=== PATIENT | male | born 1950 | race Caucasian/White ===

== ENCOUNTER 2019-02-02 06:31 | Inpatient (IN) | payer OTHER ==
[2019-02-01 15:25] VITALS: BMI 25.7
[2019-02-02] MEDS ORDERED: BUPIVACAINE HCL/PF 0.25% (2.5MG/ML) 10 ML VIAL ONE ×2 (07:08→07:11)
[2019-02-02] MEDS ORDERED: MIDAZOLAM HCL 2 MG/2 ML SINGLE DOSE VIAL ONE (07:22)
[2019-02-02] MEDS ORDERED: LIDOCAINE HCL/PF 2% SDV 5ML VIAL ONE ×2 (07:25→10:41)
[2019-02-02] MEDS ORDERED: PROPOFOL 20 ML ONE ×2 (07:26→08:56)
[2019-02-02] MEDS ORDERED: ROCURONIUM BROMIDE 50 MG/5 ML VIAL ONE ×2 (07:26→08:55)
[2019-02-02] MEDS ORDERED: DEXAMETHASONE SOD PHOSPHATE 4 MG/1 ML VIAL ONE (07:29)
[2019-02-02] MEDS ORDERED: KETOROLAC TROMETHAMINE 30 MG/1 ML VIAL ONE (07:29)
--- NOTE | 2019-02-02 07:53 | HP ---
History & Physical Update - History History: No Change - Physical Physical: No Change - Assessment Assessment: No Change - Plan Plan: No Change
[2019-02-02] MEDS ORDERED: GLYCOPYRROLATE 0.2 MG/1 ML VIAL ONE (08:34)
[2019-02-02] MEDS ORDERED: NEOSTIGMINE METHYLSULFATE 0.5 MG/ML - 10 ML MDV ONE (08:34)
[2019-02-02] MEDS ORDERED: ceFAZolin SODIUM 1 GM VIAL ONE (08:35)
[2019-02-02] MEDS ORDERED: SODIUM CHLORIDE 0.9% P/F 10 ML VIAL IJ ONE ×2 (08:35→10:26)
[2019-02-02] MEDS ORDERED: ceFAZolin SODIUM 1 GM VIAL IVPB ONE (08:35)
[2019-02-02] MEDS ORDERED: hydrALAZINE HCL 20 MG/ML VIAL ONE (08:59)
[2019-02-02] MEDS ORDERED: BUPIVACAINE HCL/PF 0.25% (2.5MG/ML) 10 ML VIAL IJ ONE ×2 (09:09)
[2019-02-02] MEDS ORDERED: ePHEDrine SULFATE 50 MG/1 ML AMPULE ONE ×5 (10:25)
--- NOTE | 2019-02-02 11:25 | OP ---
Operative Note - Note: Operative Date: 02/02/19 Pre-Operative Diagnosis: metastatic left renal cell carcinoma Operation: laparoscopic left nephrectomy Surgeon: Quinton Marie Biscuitware Brusher: Brittany Mendenhall Anesthesiologist/EXECUTIVE PASTRY CHEF: Tristen Watkins Anesthesia: General Specimens Removed: left kidney Estimated Blood Loss (mls): 150 Drains, Volume Out (mls): 1,340 (stephens) Fluid Volume Replaced (mls): 2,500 Operative Report Dictated: Yes
[2019-02-02] MEDS ORDERED: ONDANSETRON 4 MG/2 ML VIAL IVPB PRN (11:26)
[2019-02-02] MEDS ORDERED: diphenhydrAMINE HCL 50 MG CAPSULE PO PRN (11:26)
[2019-02-02] MEDS ORDERED: ONDANSETRON 4 MG/2 ML VIAL IVPUSH PRN (11:36)
[2019-02-02] MEDS ORDERED: LACTATED RINGERS SOLUTION 1,000 ML IV SCH (11:45)
[2019-02-02] MEDS: ACETAMINOPHEN 1000 MG/100 ML VIAL (NON FORMULARY) IVPB ONE ×2 (11:55→12:00)
--- NOTE | 2019-02-02 11:58 | SURG ---
Surgery Keyboard Action Assembler Note Keyboard Action Assembler: Brittany Mendenhall PA-C Date of Service: 02/02/19 Diagnosis: metastatic left renal cell carcinoma Procedure: laparoscopic left nephrectomy I was present for the entirety of the operative procedure. For further detail, please refer to operative report.
[2019-02-02] MEDS ORDERED: HYDROmorphone HCl 2 MG/ML VIAL ONE (14:37)
[2019-02-02] MEDS ORDERED: HYDROmorphone HCl 2 MG/ML VIAL IVPUSH ONE (14:40)
[2019-02-02] MEDS: SODIUM CHLORIDE 1,000 ML IV SCH (15:15)
[2019-02-02] MEDS: ACETAMINOPHEN 500 MG TABLET (FP) PO SCH (18:26)
[2019-02-02] MEDS ORDERED: MORPHINE SULFATE 2 MG/ML VIAL IVPUSH PRN (19:12)
[2019-02-02] MEDS ORDERED: ATORVASTATIN CA 20 MG TABLET (FP) PO SCH (22:00)
[2019-02-02] MEDS: DOCUSATE SODIUM 100 MG CAPSULE (FP) PO SCH (22:19)
[2019-02-03] MEDS: ACETAMINOPHEN 500 MG TABLET (FP) PO SCH ×4 (05:38→17:04)
[2019-02-03] MEDS ORDERED: oxyCODONE HCL 5 MG TABLET PO PRN (08:12)
[2019-02-03] MEDS: oxyCODONE HCL 5 MG TABLET PO PRN ×2 (08:31→13:17)
[2019-02-03 08:34] LABS: HEMATOCRIT 36.8 % (35.4-49); HEMOGLOBIN 12.2 GM/dL (11.7-16.9); MCH 31.6 pg (25.7-33.7); MEAN CELL VOLUME 95.7 fl (80-96); MEAN PLT VOLUME 9.5 fl (7.5-11.1); RBC 3.85 M/mm3 (4.00-5.60); RDW 15.3 % (11.9-15.9); WHITE BLOOD COUNT 10.4 K/mm3 (4.0-10.0)
[2019-02-03 08:39] LABS: BLOOD UREA NITROGEN 12.4 mg/dL (7-18); CALCIUM 8.3 mg/dL (8.5-10.1); CREATININE 1.4 mg/dL (0.55-1.3); POTASSIUM 4.4 mmol/L (3.5-5.1)
--- NOTE | 2019-02-03 08:47 | PN ---
Progress Note (short form) - Note Progress Note: Anesthesia postop note 69 y/o M s/p GA for Laparoscopic nephrectomy POD#1, vss, aaox3, pain well controlled. No anesthesia complications.
[2019-02-03 08:53] LABS: PLATELET COUNT 216 K/MM3 (134-434)
--- NOTE | 2019-02-03 09:02 | PN ---
Progress Note (short form) - Note Progress Note: 69yo M s/p Lap Left nephrectomy POD 1, pt seen and examined at bedside. Pt complaining of pain around the incision. Pt denies fever, chills, n/v, diarrhea. Pt states that has been producing a lot of urine out of stephens. Last Vital Signs Temp Pulse Resp BP Pulse Ox 98.0 F 65 14 125/74 97 02/03/19 08:16 02/03/19 08:16 02/03/19 08:16 02/03/19 08:16 02/02/19 21:00 CBC, BMP 02/03/19 07:45 02/03/19 07:45 PE: Gen: A&O X3 Resp: breathing comfortably Abd: soft, nondistended, moderate tenderness around incision, incisions clean with no erythema or discharge. Ext: no edema Problem List - Problems (1) Status post nephrectomy Assessment/Plan: Plan -will DC stephens and [place] later today. -adv diet -pain control -will consider discharge later today if doing well. Case discussed with Dr. Pinto who agrees with plan Code(s): Z90.5 - ACQUIRED ABSENCE OF KIDNEY
[2019-02-03] MEDS ORDERED: PT OWN MED DRAWER 7, Y5N ONE (09:45)
[2019-02-03] MEDS ORDERED: LISINOPRIL 20 MG TABLET (FP) PO SCH (10:00)
[2019-02-03] MEDS ORDERED: HYDROCHLOROTHIAZIDE 12.5 MG CAPSULE (FP) PO SCH (10:00)
[2019-02-03] MEDS ORDERED: PATIENT'S OWN MEDICATION (NON-FORMULARY) (Lisinopril/Hydrochlorothiazide [Lisinopril-Hctz PO SCH (10:00)
[2019-02-03] MEDS: DOCUSATE SODIUM 100 MG CAPSULE (FP) PO SCH (10:07)
[2019-02-03] MEDS: SODIUM CHLORIDE 1,000 ML IV SCH (11:54)
[2019-02-03 15:00] VITALS: BP 128/76; PULSE 68; TEMP 98.2
--- NOTE | 2019-02-07 22:14 | OPR ---
Date of Surgery: 02/07/19 Pre-Procedure Information Pre-op Diagnosis:Renal mass [N28.89] Procedure Information Procedure(s): LAPAROSCOPICLEFT RADICALNEPHRECTOMY Anesthesia:General Surgeon(s) and Role: * Quinton Marie MD - Primary Job Training Supervisor: Date of Surgery: 02/07/19 Pre-Procedure Information Pre-op Diagnosis:Renal mass [N28.89] Procedure Information Procedure(s): LAPAROSCOPICLEFT RADICALNEPHRECTOMY Anesthesia:General Surgeon(s) and Role: * Quinton Marie MD - Primary Job Training Supervisor: ENEIDA Singletary. Procedure Description Indications: Left renal cell cancer. Findings: Single artery and single vein - taken individually with 2 vascular loads Ethicon 45 powered stapler. Procedure Details: Pt was brought to operating room and placed in supine position. SCDs were applied, perioperativeantibiotics were administered, and general anesthesia was induced.16Fr Gibbs was inserted. He was then positioned in modified flank position with left side up,axillary roll in place,back roll, bottom leg bent and three pillows hislegs. Left arm was placed on moreno and he was secured in place tothe table. He was then prepped and draped in the usual sterile manner. A Veress needle was used to insufflate the abdomen to 15mm Hg justabove the umbilicus and in the lateral rectus border. A 12mm trocar was inserted and there was no evidence of injury to any visceral structures. A second 12mm trocar was insertedunder the costal margin in the mid clavicular line.A third 12mm trocar was inserted inferior to level of umbilicus again slightly lateral tothe mid clavicularline.Pneumo was maintained on 12mmHg throughout the rest of the case. The white line of toldt was taken down with ligasure and colon retracted medially. Gonadalvein and ureter were encountered.The lower pole of the kidney was freed off the psoas muscleand lifted laterally, exposing the hilum. The hilum was dissected free consisting of single renal vein and one artery and these were taken separately with [id number] stapler x2with an extra hemolock along the distal edge of vein.Right adrenal gland was spared with ligasure. Ureter and gonadal vein packet was controlled with blue stapler load. Posterior, medial,and lateral attachments were then freed with ligasure allowing kidney to be mobilized.The mass, while posterior, did not invade psoas.Renal hilum, pancreas, colon, and adrenal were carefully inspected and there was no evidence of injury or bleeding.15mm endocatch bag was placed into theinferiortrocar and right kidney placed within. The trocars were removed. Theendocatchbag was removed through the lower quadrant incisionwhich was extended laterallyand this was then closed withan inner layer of 0 vicryl sutures in a [id number] fashion, and an outer layer of 0 vicryl running. Hemostasis inspection was done again at the end and 10 Fr [place] drain was left in the nephrectomy bed. Subcutaneous tissues closed with 3-0 vicryl.Skin was closed with 4-0 monocrylinterruptedand dermabond. Estimated Blood Loss: 150 ml. Drains: 10 Fr [place] drain.
--- NOTE | 2019-02-08 17:08 | PATH ---
Surgical Pathology Report Patient Name: DANICA DELANEY [facility]. Rec. #: [id number] /Age/Gender: 1950 (Age: 69) / M Account: [id number] Location: [address] [place] [address] Taken: 02/02/2019 Received: 02/02/2019 Reported: 02/08/2019 Physicians: Quinton Marie M.D. Specimen(s) Received LEFT KIDNEY Clinical History Malignant neoplasm of left kidney Final Diagnosis KIDNEY, LEFT, RADICAL NEPHRECTOMY: CLEAR CELL RENAL CELL CARCINOMA, GRADE 3 (WHO/ISUP GRADE). TUMOR MEASURES 5.0 X 4.6 X 3.0 CM (GROSS MEASUREMENT). TUMOR LOCATED AT UPPER (UPPER-LATERAL) POLE. TUMOR EXTENDS INTO PERINEPHRIC TISSUE AND RENAL SINUS. TUMOR NECROSIS PRESENT, ~25-30%. NO LYMPHOVASCULAR INVASION IDENTIFIED. SURGICAL MARGINS ARE NEGATIVE. ONE LYMPH NODE, NEGATIVE FOR CARCINOMA ON H&E AND CONFIRMED BY AE1/3 IMMUNOHISTOCHEMICAL STAIN. NON-NEOPLASTIC RENAL PARENCHYMA SHOW FOCAL GLOBAL GLOMERULOSCLEROSIS, PATCHY TUBULAR ATROPHY, MILD INTERSTITIAL FIBROSIS, FOCAL HYALINE ARTERIOLOSCLEROSIS, AND MILD PATCHY CHRONIC INFLAMMATION CONSISTENT WITH HYPERTENSIVE NEPHROSCLEROSIS. AJCC (TNM) STAGE (8th ED): pT3a pN0. SEE SUMMARY BELOW. Comments Surgical Pathology Cancer Case Summary AJCC TNM Stage, 8th Edition KIDNEY: Nephrectomy Procedure _X_ Radical nephrectomy Specimen Laterality _X_ Left Tumor Site _X_ Upper pole (Upper-lateral) Tumor Size Greatest dimension (centimeters): 5 cm Additional dimensions (centimeters): 4.6 x 3.0 cm Tumor Focality _X_ Unifocal Histologic Type _X_ Clear cell renal cell carcinoma Sarcomatoid Features _X_ Not identified Rhabdoid Features _X_ Not identified Histologic Grade (WHO / ISUP Grade) _X__ G3: Nucleoli conspicuous and eosinophilic at 100x magnification Tumor Necrosis _X__ Present Specify percentage of necrosis: ~25-30% Tumor Extension _X_ Tumor extension into perinephric tissue (beyond renal capsule) _X_ Tumor extension into renal sinus Margins _X_ Uninvolved by invasive carcinoma Lymphovascular Invasion (excluding renal vein and its segmental branches and inferior vena cava) _X_ Not identified Regional Lymph Nodes Lymph Node Examination Number of Lymph Nodes Involved: 0 Number of Lymph Nodes Examined: 1 Pathologic Stage Classification (pTNM, AJCC 8th Edition) Primary Tumor (pT) _X_ pT3a: Tumor extends into renal vein or its segmental branches, or invades the pelvicalyceal system, or invades perirenal and/or renal sinus fat but not beyond Gerota's fascia Regional Lymph Nodes (pN) _X_ pN0: No regional lymph node metastasis Pathologic Findings in Nonneoplastic Kidney _X_ Glomerular disease (specify type): focal global glomerulosclerosis _X_ Tubulointerstitial disease (specify type): patchy tubular atrophy and mild interstitial fibrosis _X_ Vascular disease (specify type): focal hyaline arteriolosclerosis _X_ Mild patchy chronic inflammation Electronically Signed Mar Jaquez M.D. Addendum Reported: 02/09/2019 Addendum Diagnosis PAS special stain utilized to evaluate this case. Findings discussed with Dr. Marie. Mar Jaquez M.D. Gross Description Received in formalin labeled "left kidney," is a 548 g nephrectomy specimen including a 9.5 x 6.5 x 5.0 cm kidney with a 9 cm in length attached portion of ureter, a 2 cm in length portion of renal vein and a 2 cm in length attached portion of renal artery. The kidney displays abundant attached perinephric fat, measuring up to 4 cm in thickness. Sectioning reveals a 5.0 x 4.6 x 3.0 cm well-circumscribed mass in the upper-lateral pole of the kidney. The cut surface of the mass displays red-yellow, gavin-brown mottled parenchyma. The mass is protruding from the renal parenchyma to the renal capsule into the perinephric fat. The mass focally abuts the outer fascia (blue). No definitive invasion into the renal sinus or renal pelvis is grossly identified. The renal vein appears free of tumor. The remaining renal parenchyma is red-brown and unremarkable. There is no adrenal gland identified. There is a possible hilar lymph node identified measuring 0.6 cm in greatest dimension. Plastic Cablemaking Machine Operator sections are submitted in 14 cassettes as follows: 1-vesicular ureteral margins; 2-4-tumor to perinephric fat with inked outer fascia; 5-additional tumor to outer capsule; 6-tumor to normal renal parenchyma; 7-8-tumor to renal sinus; 9-tumor to renal pelvis; 10-additional procurement representative tumor; 11-additional ureter; 12-possible hilar lymph node; 13-uninvolved upper pole parenchyma; 14-uninvolved lower pole parenchyma. DL02/03/2019 saudi02/03/2019
== END 2019-02-03 18:30 | disposition home or self-care (01) | DRG 658 ==
LOC: JSAMEDAYSX 06:31 → J6S 17:04
PROVIDERS: ADMIT Student in an Organized Health Care Education/Training Program; ATTEND Student in an Organized Health Care Education/Training Program
PROC: 0TT14ZZ Resection of Left Kidney, Percutaneous Endoscopic Approach (ICD-10-PCS; principal; 2019-02-02 08:00)
DX: C64.2 Malignant neoplasm of left kidney, except renal pelvis (principal); I10 Essential (primary) hypertension; E78.00 Pure hypercholesterolemia, unspecified
CPT/HCPCS: 36415; 80048; 85027; 86900; 86922; 88307-TC; 94010; 94760; J0131; J7030